=== PATIENT | female | born 1950 | race Caucasian/White ===

== ENCOUNTER 2020-05-23 19:18 | Emergency (ER) | payer OTHER ==
[~2020-05-23] VITALS: Ht 175.3 cm; Wt 74.8 kg
--- NOTE | ~2020-05-23 | EMS ---
[facility] [address] [place] [address] EMS Patient Care Report Name: LUIS MCLAUGHLIN Room #: DEP SEUN Gu#: [id number] Admission: 05/23/20 Attend Phys: Discharge: 05/23/20 Date of : 54 Report #: [id number] THIS REPORT FOR: //name// Report Transmitted: 05/23/2020 20:55 EMS Care Summary [facility] MED-ACT Incident [id number] @ 05/23/2020 18:42 Incident Location [address] [place] [address] Patient LUIS MCLAUGHLIN Female, 69 Years 1950 Patient Address [id number] [place] [address] Patient History Hyperlipidemia, Patient Allergies No known allergies, Patient Medications Atorvastatin, Chief Complaint Intoxication Disposition Transported No Lights/Tyler Dispatch Reason Sick Person Transported To [facility] Narrative Dispatched to C1 Sick Ill Subject. Upon our arrival, patient is noted laying in left lateral recumbent position with a puddle of vomit near her airway on the carpet. She was clearly incontinent. Her airway was open and patent despite the vomiting and she had no increased work of breathing noted. Her respirations [facility] [address] [place] [address] EMS Patient Care Report Name: LUIS MCLAUGHLIN Room #: DEP SEUN Gu#: [id number] Admission: 05/23/20 Attend Phys: Discharge: 05/23/20 Date of : 54 Report #: [id number] were adequate in depth and rate. She looked perfused in color for ethnicity and was diaphoretic. reports: He and patient had about three margaritas tonight. kept reporting that "they had about the same and it didn't affect me like this." He also reports that they have been doing the Whole[employer] and dieting for the past couple of months, so they have not had any alcohol within the past three months. He also reports that patient is very active and went on a thirty mile bike ride yesterday. He reports that she ate and hydrated like normal today. He called 911 because she started to throw up, wet herself and he "didn't know what else to do." Patient was unable to communicate if she had any complaint. Vitals, physical exam and PMH obtained and as documented. Large bio bag was put around patient's neck due to her being unable to follow commands and hold a convenience bag. Initially, tried to ask if she wanted to go to . did not respond because she was vomiting. EMS suggested that patient go to a closer hospital due to her current condition and gave consent to transport her to [facility]. Cot was wheeled to ambulance where EMS personnel monitored vitals and held patient up as she continued to fall over to each side and vomit. [facility] contacted via radio. Cot wheeled to ER Room 7 where she was moved via total lift and report given to RN. Signatures obtained. Initial Vitals @19:07P: 55,BP: 136/75,SpO2: 97, @18:54P: 65,R: 12,BP: 110/70,Pain: 0/10,Temp: 98.1F,SpO2: 93, Assessments @18:54MENTAL:Person Oriented,Time Oriented,Event Oriented,SKIN:Diaphoresis,HEENT:Head/Face: No Abnormalities,Neck/Airway: No Abnormalities,LUNG SOUNDS:General: Nausea,General: Vomiting,ABDOMEN:General: Nausea,General: Vomiting,PELVIS//GI:Incontinence,EXTREMITIES:Left Arm: No Abnormalities,Right Arm: No Abnormalities,PULSE:Radial: 2+ Normal,Carotid: 2+ Normal,NEURO:No Abnormalities, Impression Alcohol use Procedures @18:54Surgical Mask on Patient Timeline 18:41,Call Received 18:41,Psap Call 18:42,Dispatched 18:43,En Route 18:51,On Scene 18:53,At Patient [facility] [address] [place] [address] EMS Patient Care Report Name: LUIS MCLAUGHLIN Room #: DEP Riccardo#: [id number] Admission: 05/23/20 Attend Phys: Discharge: 05/23/20 Date of : 54 Report #: [id number] 18:54,Surgical Mask on Patient, 18:54,BP: 110/70 M,PULSE: 65,RR: 12 R,SPO2: 93 Ox,ETCO2: ,BG: ,PAIN: 0,GCS: , 19:05,Depart Scene 19:07,BP: 136/75 M,PULSE: 55,RR: R,SPO2: 97 Ox,ETCO2: ,BG: ,PAIN: ,GCS: , 19:14,At Destination 20:07,Call Closed Disclaimer v1.1 Copyright 2020 [employer] This EMS Care Summary contains data elements from the applicable legal record (which may be displayed differently). It is designed to provide pertinent information for the following purposes: continuity of care, clinical quality, and state data reporting. The complete legal record is available to ED staff and administrators of the receiving hospital in [email or web address]'s Patient Tracker. All data is provided "as is."
[2020-05-23] MEDS ORDERED: ATORVASTATIN CA20 MG PO (19:35)
[2020-05-23 19:46] LABS: ABSOLUTE NEUTROPHILS 2.6 thou/uL (1.4-8.2); BASOPHILS 0.7 % (0.0-2.0); EOSINOPHILS 2.5 % (0.0-3.0); HEMATOCRIT 38.3 % (37.0-47.0); LYMPHOCYTES 51.4 % (24.0-44.0); MCH 32.8 pg (26.0-34.0); MCHC 33.9 g/dL (28.0-37.0); MCV 96.8 fL (80.0-100.0); MONOCYTES 10.4 % (1.0-8.0); PLATELET COUNT 218 thou/uL (150-400); RBC 3.96 mil/uL (4.20-5.00); RDW 12.5 % (10.5-14.5); WBC 7.5 thou/uL (4.0-11.0)
[2020-05-23 20:48] LABS: CREATININE 0.7 mg/dL (0.6-1.0); POTASSIUM 3.1 mmol/L (3.5-5.1)
[2020-05-23 21:45] VITALS: BP 134/80
--- NOTE | 2020-05-24 07:12 | EKG ---
[facility] [employer] [facility] [place] [address] ELECTROCARDIOGRAM REPORT Name: LUIS MCLAUGHLIN Room #: [id number] Admission: 05/23/20 Attend Phys: Discharge: 05/23/20 Date of : 54 Report #: [id number] [facility] ED Test Date: 2020-05-23 Test Time: 19:31:28 Pat Name: LUIS MCLAUGHLIN Department: Room: Gender: F Logistic Specialist: : 1950 Requested By: Kale Koroma Order Number: [id number] MD: Mohit Mckenzie Measurements Intervals [place] Rate: 54 P: 19 NE: 161 QRS: 48 QRSD: 115 T: 41 QT: 479 QTc: 446 Interpretive Statements Sinus rhythm Nonspecific intraventricular conduction delay Baseline wander in lead(s) V6 No previous ECG available for comparison Electronically Signed On 05-24-2020 7:12:45 [employer] by Mohit Mckenzie [email or web address] <ELECTRONICALLY SIGNED> By: Mohit Mckenzie MD, [facility] 05/24/20 0712 30 30 Mohit Mckenzie MD, FACC /EPI
== END 2020-05-23 21:46 | disposition home or self-care (01) ==
LOC: ER 19:18
PROVIDERS: Emergency Medicine
DX: F10.129 Alcohol abuse with intoxication, unspecified (principal); R11.2 Nausea with vomiting, unspecified; E78.5 Hyperlipidemia, unspecified; Z79.899 Other long term (current) drug therapy; Y90.7 Blood alcohol level of 200-239 mg/100 ml